=== PATIENT | female | born 1990 ===

== ENCOUNTER 2017-11-15 13:40 | Emergency (ER) | payer BC ==
--- NOTE | 2017-11-15 14:24 | EDM.PDOC ---
ED HPI GENERAL MEDICAL PROBLEM - General Chief Complaint: General Stated Complaint: FALL Time Seen by Provider: 11/15/17 14:15 - History of Present Illness INITIAL COMMENTS - FREE TEXT/NARRATIVE: HISTORY AND PHYSICAL: History of present illness: The patient is a 27-year-old female who is status post delivery of an about one month ago and is currently breast-feeding but presents after she fell down about 5 stairs at her home epidermis stepping. The patient says he did not hit her head pass out or black out and has no head neck or back pain and no rib pain chest pain or abdominal pain. She was mostly of pain at her left ankle which started right after the fall and there is gross swelling of the area and she states that her left elbow started hurting since she has arrived here. She has no proximal knee or hip pain and no left hand wrist or shoulder pain. The patient states she was having a completely normal day prior to these events Review of systems: As per history of present illness and below otherwise all systems reviewed and negative. Past medical history: As per history of present illness and as reviewed below otherwise noncontributory. Surgical history: As per history of present illness and as reviewed below otherwise noncontributory. Social history: No reported history of drug or alcohol abuse. Family history: As per history of present illness and as reviewed below otherwise noncontributory. Physical exam: : Well-developed well-nourished female who is nontoxic and speaking clearly easily in ED. Vital signs are noted by me HEENT: Atraumatic, normocephalic, negative for conjunctival pallor or scleral icterus, mucous membranes moist, throat clear, neck supple, nontender, trachea midline. There are no midline step-offs tenderness or defects of the cervical spine Lungs: Clear to auscultation, breath sounds equal bilaterally, chest nontender. Heart: S1S2, regular in rhythm no overt murmurs Abdomen: Soft, nondistended, nontender. NABS Negative for costovertebral tenderness. Pelvis: Stable nontender. Lateral hip tenderness on the left Genitourinary: Deferred. Rectal: Deferred. Extremities: There is full range of motion of all extremities with the exception of the left ankle where there is extreme swelling of the lateral malleolus but normal alignment and there is no distal metatarsal toe or calcaneal tenderness or defects and no proximal tib-fib knee thigh or hip tenderness or deformities. Neurovascular is intact in the foot. There is also tenderness and swelling at the left elbow, more at the medial aspect but no ecchymosis and there is no distal forearm wrist or hand tenderness or deformities and no proximal shoulder or clavicle deformities or tenderness. The patient says that any movement of the elbow causes significant pain. He will not flex and extend at the elbow due to discomfort. The legs are negative for cords or calf pain. Neurovascular unremarkable. Neuro: Awake, alert, oriented. Cranial nerves II through XII unremarkable. Cerebellum unremarkable. Motor and sensory unremarkable throughout. Exam nonfocal. Diagnostics: X-ray left ankle and left elbow Therapeutics: Ice pack cam boot and crutches and sling Impression: Fall, left ankle sprain, left elbow contusion Definitive disposition and diagnosis as appropriate pending reevaluation and review of above. Left Feet Pain Score (Numeric/FACES): 8 - Related Data Allergies Allergy/AdvReac Type Severity Reaction Status Date / Time No Known Allergies Allergy Verified 11/15/17 14:17 Home Meds: Home Meds . [No Known Home Meds] 11/15/17 [History] Past Medical History - Past Health History Medical/Surgical History: Denies Medical/Surgical History Cardiovascular History: Reports: Hypertension Genitourinary History: Reports: Pyelonephritis (2009) [employer] History: Reports: Psychiatric History: Reports: Depression - Past Surgical History Cardiovascular Surgical History: Reports: None Social & Family History - Family History Family Medical History: Noncontributory - Caffeine Use Caffeine Use: Reports: None ED ROS GENERAL - Review of Systems Review Of Systems: ROS reveals no pertinent complaints other than HPI. ED EXAM, GENERAL - Physical Exam Exam: See Below (see Dictation) Course - Vital Signs Last Recorded V/S: Last Vital Signs Temp 36.7 C 11/15/17 14:14 Pulse 66 11/15/17 14:14 Resp 18 11/15/17 14:14 BP 122/80 11/15/17 14:14 Pulse Ox 98 11/15/17 14:14 - Orders/Labs/Meds Orders: Active Orders 24 hr Category Date Time Status Ankle Min 3V Lt [CR] Stat Exams 11/15/17 14:20 Taken Elbow Min 3V Lt [CR] Stat Exams 11/15/17 14:20 Taken DME for Discharge [COMM] Stat Oth 11/15/17 15:22 Ordered Departure - Departure Time of Disposition: 15:26 Disposition: Home, Self-Care 01 Condition: Good Clinical Impression: Fall Qualifiers: Encounter type: initial encounter Qualified Code(s): W19.XXXA - Unspecified fall, initial encounter Contusion of elbow, left Qualifiers: Encounter type: initial encounter Qualified Code(s): S50.02XA - Contusion of left elbow, initial encounter Left ankle sprain Qualifiers: Encounter type: initial encounter Involved ligament of ankle: unspecified ligament Qualified Code(s): S93.402A - Sprain of unspecified ligament of left ankle, initial encounter - Discharge Information Referrals: PCP,None [Primary Care Provider] - Forms: ED Department Discharge Additional Instructions: The following information is given to patients seen in the emergency department who are being discharged to home. This information is to outline your options for follow-up care. We provide all patients seen in our emergency department with a follow-up referral. The need for follow-up, as well as the timing and circumstances, are variable depending upon the specifics of your emergency department visit. If you don't have a primary care physician on staff, we will provide you with a referral. We always advise you to contact your personal physician following an emergency department visit to inform them of the circumstance of the visit and for follow-up with them and/or the need for any referrals to a consulting specialist. The emergency department will also refer you to a specialist when appropriate. This referral assures that you have the opportunity for followup care with a specialist. All of these measure are taken in an effort to provide you with optimal care, which includes your followup. Under all circumstances we always encourage you to contact your private physician who remains a resource for coordinating your care. When calling for followup care, please make the office aware that this follow-up is from your recent emergency room visit. If for any reason you are refused follow-up, please contact the [facility] emergency department at and ask to speak to the emergency department charge nurse. [facility]--Orthopedic clinic Professional [address] [address] Ice and elevate all areas and use cam boot loosening and removing at sleep times please. Use crutches as you are able and use sling on the left elbow. Try to not weight-bear and rest as much as possible. Use [id number] Tylenol and ibuprofen for pain and use [facility] you have been prescribed as needed for sleep time. Please call the orthopedic clinic tomorrow to schedule follow-up appointment and return to ER as needed and as discussed - My Orders Last 24 Hours: My Active Orders 11/15/17 14:20 Ankle Min 3V Lt [CR] Stat Elbow Min 3V Lt [CR] Stat 11/15/17 15:22 DME for Discharge [COMM] Stat - Assessment/Plan Last 24 Hours: My Active Orders 11/15/17 14:20 Ankle Min 3V Lt [CR] Stat Elbow Min 3V Lt [CR] Stat 11/15/17 15:22 DME for Discharge [COMM] Stat
--- NOTE | 2017-11-16 14:42 | CR ---
EXAM DATE: 11/15/17 PATIENT'S AGE: 27 Patient: JENNIFER SAMUEL Facility: [place], [place] Site . Site : 1990 Study: XRay Extremity Left elbow [id number]/28/2018 2:46:26 PM Ordering Physician: Dariela Cartagena Final Report: INDICATION: Fell down stairs with left elbow injury. TECHNIQUE: Three views of the left elbow. COMPARISON: None. FINDINGS: Abnormal anterior and posterior fat pads consistent with fluid in the joint. No fracture, subluxation or other abnormality. IMPRESSION: 1. Left elbow joint effusion/hemarthrosis. 2. No fracture evident. Dictated by Dwayne Victor MD @ Nov 15 2017 2:46PM (Electronic Signature) Report Signed by Proxy. SWETHA
--- NOTE | 2017-11-16 14:42 | CR ---
EXAM DATE: 11/15/17 PATIENT'S AGE: 27 Patient: JENNIFER SAMUEL Facility: [place], [place] Site . Site : 1990 Study: XRay Extremity Left ankle [id number]/28/2018 2:43:16 PM Ordering Physician: Dariela Cartagena Final Report: INDICATION: Fell down stairs with left ankle injury. TECHNIQUE: Three views of the left ankle. COMPARISON: None. FINDINGS: Marked soft tissue swelling laterally. No fracture or other abnormality. IMPRESSION: Lateral ankle sprain. Dictated by Dwayne Victor MD @ Nov 15 2017 2:45PM (Electronic Signature) Report Signed by Proxy. SWETHA
== END 2017-11-15 15:42 | disposition home or self-care (01) ==
LOC: MW.ED 13:40
DX: S93.402A Sprain of unspecified ligament of left ankle, initial encounter (principal); S50.02XA Contusion of left elbow, initial encounter; I10 Essential (primary) hypertension; W10.9XXA Fall (on) (from) unspecified stairs and steps, initial encounter
CPT/HCPCS: 73080-26-LT; 73080-LT; 73610-26-LT; 73610-LT; 99283; 99284